=== PATIENT | female | born 2000 ===

== ENCOUNTER 2020-06-12 19:37 | Emergency (ER) | payer SELFPAY ==
[2020-06-12 19:45] VITALS: BP 129/84
--- NOTE | 2020-06-12 20:14 | Event Note ---
ED Screening Note Date of service: 06/12/20 Time: 20:13 ED Screening Note: 19-year-old -[place] female presents to the emergency room for nausea and vomiting that started this morning. Patient states that she started having cramps and she has been sitting here in the ER. Patient reports her last menstrual period was 05/04/2020. She has not checked a test at home. This initial assessment/diagnostic orders/clinical plan/treatment(s) is/are subject to change based on patients health status, clinical progression and re- assessment by fellow clinical providers in the ED. Further treatment and workup at subsequent clinical providers discretion. Patient/guardian urged not to elope from the ED as their condition may be serious if not clinically assessed and managed. Initial orders include:
[2020-06-12 21:07] LABS: Eosinophils # (Auto) 0.1 K/mm3 (0.0-0.4); Eosinophils % (Auto) 1.5 % (0.0-4.3); Hematocrit 38.9 % (30.3-42.9); Lymphocytes % (Auto) 30.1 % (13.4-35.0); Mean Corpuscular HGB Conc 33 % (30-34); Mean Corpuscular Volume 89 fl (79-97); Monocytes # (Auto) 0.5 K/mm3 (0.0-0.8); Monocytes % (Auto) 7.9 % (0.0-7.3); Platelet Count 206 K/mm3 (140-440); Red Blood Count 4.36 M/mm3 (3.65-5.03); Red Cell Distribution Width 13.4 % (13.2-15.2)
[2020-06-12 21:11] LABS: Alanine Aminotransferase 10 units/L (7-56); Albumin 4.3 g/dL (3.9-5); Blood Urea Nitrogen 7 mg/dL (7-17); Hemolysis Index 4
[2020-06-12 21:20] LABS: BUN/Creatinine Ratio 12
[2020-06-12 22:43] LABS: Bilirubin,Urine NEG (Negative); Blood,Urine NEG (Negative); Color,Urine Yellow (Yellow); Mucus,Urine 2+ /HPF; Urobilinogen,Urine < 2.0 mg/dL (<2.0)
--- NOTE | 2020-06-13 01:18 | Emergency Department Report ---
ED Female HPI - General Chief complaint: Nausea/Vomiting/Diarrhea Stated complaint: NAUSEA, STOMACH PAIN Time Seen by Provider: 06/13/20 00:59 Source: patient Mode of arrival: Ambulatory Limitations: No Limitations - History of Present Illness Initial comments: 19-year-old F [place] female resulting in ectopic about a year ago presents emerged department complaining of pelvic cramping associated with nausea and vomiting which has since progressed to pain while sitting here in the emergency department of unknown etiology. She reports no to her knowledge but states that her menstrual period is little bit late reports no trauma ports no dysuria no hematuria no fevers chills or sweats, no chest pain, palpitation, headache, dizziness. The vomiting has been cyclic in nature. MD Complaint: pelvic pain -: days(s) Location: suprapubic Radiation: suprapubic Severity: severe Quality: cramping, aching Consistency: constant Improves with: none Worsens with: none Are you Now?: No (But last menstrual period was in April) Associated Symptoms: denies other symptoms - Related Data Sexually active: Yes Previous Rx's Medication Instructions Recorded Last Taken Type Doxylamine Succinate/Vit B6 1 each PO Q8HR #30 tablet. 06/13/20 Unknown Rx [Dichues 10-10 mg Tablet] Allergies Allergy/AdvReac Type Severity Reaction Status Date / Time No Known Allergies Allergy Unverified 06/12/20 19:45 ED Review of Systems ROS: Stated complaint: NAUSEA, STOMACH PAIN Other details as noted in HPI Comment: All other systems reviewed and negative ED Past Medical Hx - Past Medical History Previous Medical History?: No - Social History Smoking Status: Never Smoker Substance Use Type: None - Medications Home Medications: Home Medications Medication Instructions Recorded Confirmed Last Taken Type Doxylamine Succinate/Vit B6 1 each PO Q8HR #30 tablet. 06/13/20 Unknown Rx [Madonna Boyle 10-10 mg Tablet] ED Physical Exam - General Limitations: No Limitations General appearance: alert, in no apparent distress - Head Head exam: Present: atraumatic, normocephalic - Eye Eye exam: Present: normal appearance, PERRL, EOMI. Absent: scleral icterus, conjunctival injection, periorbital tenderness Pupils: Present: normal accommodation - ENT ENT exam: Present: normal exam, normal orophraynx, mucous membranes moist, TM's normal bilaterally, normal external ear exam - Neck Neck exam: Present: normal inspection, full ROM - Respiratory Respiratory exam: Present: normal lung sounds bilaterally. Absent: respiratory distress - Cardiovascular Cardiovascular Exam: Present: regular rate, normal rhythm. Absent: systolic murmur, diastolic murmur, rubs, gallop - GI/Abdominal GI/Abdominal exam: Present: soft, tenderness, normal bowel sounds - Extremities Exam Extremities exam: Present: normal inspection - Back Exam Back exam: Present: normal inspection - Neurological Exam Neurological exam: Present: alert, oriented X3 - Psychiatric Psychiatric exam: Present: normal affect, normal mood - Skin Skin exam: Present: warm, dry, intact, normal color. Absent: rash ED Course Vital Signs 06/12/20 19:43 Temperature 98.0 F Pulse Rate 79 Respiratory 18 Rate Blood Pressure 129/84 O2 Sat by Pulse 98 Oximetry ED Medical Decision Making - Lab Data Result diagrams: 06/12/20 20:21 06/12/20 20:21 - Radiology Data Radiology results: report reviewed Patient Name: DIPESH VELASCO Gender: Female Date of : 2000 Referring Provider: SANTIAGO REZA Organization: [facility] Accession Number: [id number] Requested Date: June 13, 2020 01:03 Report Status: Final Requested Procedure: 1 Procedure Description: US OB <= 14 weeks fetus Modality: US Findings Reporting MD: Foster Interiano Dictation Time: June 13, 2020 02:26 [place] Miner: 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 A fundal intrauterine gestational sac is seen with yolk sac and pole noted. Estimated gestational age by crown-rump length is 6 weeks 0 days which corresponds reasonably well with the 5 weeks 5 days by clinical dating. However, cardiac activity is not verified and viability is not confirmed. No obvious implantational bleed is seen. Left ovary measures 3.3 cm in length and shows no abnormalities. Right ovary is not visualized. No free fluid is seen. IMPRESSION: Intrauterine without confirmation of viability. Follow-up is needed. 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 A fundal intrauterine gestational sac is seen with yolk sac and pole noted. Estimated gestational age by crown-rump length is 6 weeks 0 days which corresponds reasonably well with the 5 weeks 5 days by clinical dating. However, cardiac activity is not verified and viability is not confirmed. No obvious implantational bleed is seen. Left ovary measures 3.3 cm in length and shows no abnormalities. Right ovary is not visualized. No free fluid is seen. IMPRESSION: Intrauterine without confirmation of viability. Follow-up is needed. Signer Name: Foster Interiano MD Signed: 06/13/2020 2:26 AM Workstation Name: [id number] - Medical Decision Making Female presents emergency department complaining of nausea and vomiting without diarrhea. The patient is overall well-appearing and suspected to have hyperemesis gravidarum. Given the history of examination he does not appear to be an emergency cause for the symptoms such as small bowel obstruction, coronary syndrome, bowel ischemia, DKA, pancreatitis, appendicitis, acute abdomen no emergent problem. Patient was treated with Reglan, Benadryl, fluids as well as vitamin D6. After treatment patient is feeling much better tolerating p.o. fluids shows no signs of dehydration. Treated patient with Reglan Benadryl was slightly decreased her symptoms to the point she can hold conversation and sit up and ambulate. She requested more antiemetics discussed with Bella and his risk and she chose to go through with the medication. We discussed ultrasound findings as well as laboratory results. She is been encouraged to follow-up with an LICENSED OCCUPATIONAL THERAPIST for which she states she is able to do and also Tylenol [id number].. Prescription written for likely just incident reminded the importance of hydration and follow-up advised patient to return to emergency department should her symptoms worsen she did leave the emergency department for getting her actual discharge papers due to haste Critical care attestation.: If time is entered above; I have spent that time in minutes in the direct care of this critically ill patient, excluding procedure time. ED Disposition Clinical Impression: Hyperemesis gravidarum Disposition: DC- TO HOME OR SELFCARE Is pt being admited?: No Does the pt Need Aspirin: No Condition: Stable Instructions: Hyperemesis Gravidarum, Nausea and Vomiting, Adult, [id number], Morning Sickness Prescriptions: Doxylamine Succinate/Vit B6 [Madonna Boyle 10-10 mg Tablet] 1 each PO Q8HR #30 tablet. Referrals: PRIMARY CARE, [Primary Care Provider] - 3-5 Days [facility] [Provider Group] - 3-5 Days
[2020-06-13] MEDS ORDERED: PYRIDOXINE 50 MG TAB PO SCH (01:25)
[2020-06-13] MEDS ORDERED: METOCLOPRAMIDE 10 MG/2 ML INJ IV STA (01:25)
[2020-06-13] MEDS ORDERED: SODIUM CHLORIDE 0.9% 1000 ML 1,000 ML IV ONE (01:25)
[2020-06-13] MEDS ORDERED: ACETAMINOPEN W/CODEINE 120-12MG ORAL LIQD 5 ML PO STA (01:25)
[2020-06-13] MEDS ORDERED: diphenhydrAMINE 50 MG/ML VIAL IV STA (01:25)
--- NOTE | 2020-06-13 03:30 | Ultrasound Report ---
Early obstetrical ultrasound INDICATION: Early , vomiting, pelvic pain TECHNIQUE: Transabdominal COMPARISON: None FINDINGS: Uterus measures 7.8 cm in length. A fundal intrauterine gestational sac is seen with yolk s ac and pole noted. Estimated gestational age by crown-rump length is 6 weeks 0 days which corre sponds reasonably well with the 5 weeks 5 days by clinical dating. However, cardiac activity is not v erified and viability is not confirmed. No obvious implantational bleed is seen. Left ovary measures 3.3 cm in length and shows no abnormalities. Right ovary is not visualized. No fr ee fluid is seen. IMPRESSION: Intrauterine without confirmation of viability. Follow-up is needed. Signer Name: Foster Interiano MD Signed: 06/13/2020 3:26 AM Workstation Name: [id number]
[2020-06-13] MEDS ORDERED: ONDANSETRON 4 MG/2 ML INJ IV STA (03:44)
== END 2020-06-13 04:32 | disposition home or self-care (01) ==
LOC: ED 19:37
DX: O21.0 Mild hyperemesis gravidarum (principal); Z79.899 Other long term (current) drug therapy; Z3A.01 Less than 8 weeks gestation of pregnancy
CPT/HCPCS: 36415; 76801; 80053; 81001; 84702; 85025; 96361; 96374; 96375; 99284; J1200; J2405; J2765; J7030

== ENCOUNTER 2020-06-14 07:30 | Emergency (ER) | payer SELFPAY ==
[2020-06-14 07:40] VITALS: BP 107/76
[2020-06-14] MEDS ORDERED: diphenhydrAMINE 25 MG/10 ML ORAL LIQUID PO ONE (07:41)
[2020-06-14] MEDS ORDERED: METOCLOPRAMIDE 10 MG TAB PO ONE (07:41)
--- NOTE | 2020-06-14 07:43 | Event Note ---
ED Screening Note Date of service: 06/14/20 Time: 07:42 ED Screening Note: Patient presents with complaints of abdominal pain, nausea/vomiting, and blood in urine times yesterday 6 weeks States she has had an ultrasound that showed an IUP This initial assessment/diagnostic orders/clinical plan/treatment(s) is/are subject to change based on patients health status, clinical progression and re- assessment by fellow clinical providers in the ED. Further treatment and workup at subsequent clinical providers discretion. Patient/guardian urged not to elope from the ED as their condition may be serious if not clinically assessed and managed. Initial orders include: Labs Reglan and Benadryl Ultrasound
[2020-06-14] MEDS ORDERED: FAMOTIDINE 20 MG TAB PO ONE (07:44)
--- NOTE | 2020-06-14 08:36 | Ultrasound Report ---
ULTRASOUND OBSTETRIC INDICATION / CLINICAL INFORMATION: pain in early . Clinical Gestational Age (GA): 5 weeks 6.days TECHNIQUE: Transabdominal. COMPARISON: 06/13/2020 FINDINGS: GESTATIONAL SAC: Well-defined oval shape and intrauterine in location. YOLK SAC: No significant abnormality. EMBRYO/FETUS: No significant abnormality. - Panther Burn-Rump Length = 3.3 mm = 6 weeks. 0 days - Heart Rate, beats per minute (if present) = unable to obtain heart rate. ADNEXA: 2.2 cm left ovarian cyst. The right ovary is unremarkable. FREE FLUID: None. ADDITIONAL FINDINGS: Small subchorionic hemorrhage. IMPRESSION: 1. Single, intrauterine with estimated sonographic age of 6 weeks. 0 days. 2. heart rate unable to be obtained at this time, which may be secondary to early dating. Nadeem nued ultrasound follow-up is recommended. Signer Name: Osman Bahena MD Signed: 06/14/2020 8:32 AM Workstation Name: [id number]
[2020-06-14 08:52] LABS: Bilirubin,Urine NEG (Negative); Blood,Urine SM (Negative); Color,Urine Yellow (Yellow); Mucus,Urine 3+ /HPF; Urobilinogen,Urine < 2.0 mg/dL (<2.0)
[2020-06-14 09:11] LABS: Basophils % (Auto) 0.2 % (0.0-1.8); Eosinophils % (Auto) 0.1 % (0.0-4.3); Hemoglobin 12.1 gm/dl (10.1-14.3); Lymphocytes # (Auto) 1.4 K/mm3 (1.2-5.4); Lymphocytes % (Auto) 10.8 % (13.4-35.0); Mean Corpuscular HGB Conc 34 % (30-34); Mean Corpuscular Volume 88 fl (79-97); Monocytes # (Auto) 1.7 K/mm3 (0.0-0.8); Monocytes % (Auto) 12.6 % (0.0-7.3); Platelet Count 221 K/mm3 (140-440); Red Blood Count 4.09 M/mm3 (3.65-5.03); Red Cell Distribution Width 13.7 % (13.2-15.2)
[2020-06-14 09:27] LABS: Alanine Aminotransferase 27 units/L (7-56); Albumin 4.7 g/dL (3.9-5); Blood Urea Nitrogen 11 mg/dL (7-17); Calcium 9.5 mg/dL (8.4-10.2); Hemolysis Index 3
[2020-06-14 09:31] LABS: BUN/Creatinine Ratio 16
[2020-06-14] MEDS ORDERED: ACETAMINOPHEN W/CODEINE 300-30 MG TAB PO ONE (11:00)
[2020-06-14] MEDS ORDERED: POTASSIUM CHLORIDE ER 20 MEQ TAB PO ONE (11:00)
--- NOTE | 2020-06-14 11:07 | Emergency Department Report ---
ED HPI - General Chief complaint: Abdominal Pain Stated complaint: 6 WEEKS /CRAMPING/VOMITTING Time Seen by Provider: 06/14/20 07:40 Source: patient Mode of arrival: Ambulatory Limitations: No Limitations - Related Data Previous Rx's Medication Instructions Recorded Last Taken Type Doxylamine Succinate/Vit B6 1 each PO Q8HR #30 tablet. 06/13/20 Unknown Rx [Madonna Boyle 10-10 mg Tablet] Acetaminophen 500 - 1,000 mg PO QID PRN #30 06/14/20 Unknown Rx capsule Metoclopramide [Reglan] 10 mg PO TID PRN #30 tab 06/14/20 Unknown Rx Potassium Chloride 10 meq PO QDAY 5 Days #5 tablet.er 06/14/20 Unknown Rx diphenhydrAMINE [Benadryl CAP] 25 mg PO TID PRN #30 capsule 06/14/20 Unknown Rx Allergies Allergy/AdvReac Type Severity Reaction Status Date / Time No Known Allergies Allergy Unverified 06/12/20 19:45 ED Review of Systems ROS: Stated complaint: 6 WEEKS /CRAMPING/VOMITTING Other details as noted in HPI ED Past Medical Hx - Past Medical History Previous Medical History?: No - Surgical History Additional Surgical History: ectopic - Social History Smoking Status: Never Smoker - Medications Home Medications: Home Medications Medication Instructions Recorded Confirmed Last Taken Type Doxylamine Succinate/Vit B6 1 each PO Q8HR #30 tablet. 06/13/20 Unknown Rx [Madonna Boyle 10-10 mg Tablet] Acetaminophen 500 - 1,000 mg PO QID PRN #30 06/14/20 Unknown Rx capsule Metoclopramide [Reglan] 10 mg PO TID PRN #30 tab 06/14/20 Unknown Rx Potassium Chloride 10 meq PO QDAY 5 Days #5 tablet.er 06/14/20 Unknown Rx diphenhydrAMINE [Benadryl CAP] 25 mg PO TID PRN #30 capsule 06/14/20 Unknown Rx ED Physical Exam - General Limitations: No Limitations ED Course Vital Signs 06/14/20 07:36 Temperature 98.1 F Pulse Rate 83 Respiratory 18 Rate Blood Pressure 107/76 O2 Sat by Pulse 97 Oximetry ED Medical Decision Making - Lab Data Result diagrams: 06/14/20 08:19 06/14/20 08:19 Critical care attestation.: If time is entered above; I have spent that time in minutes in the direct care of this critically ill patient, excluding procedure time. ED Disposition Clinical Impression: Hyperemesis gravidarum Abdominal pain in Qualifiers: Trimester: first trimester Qualified Code(s): O26.891 - Other specified related conditions, first trimester; R10.9 - Unspecified abdominal pain Disposition: TO HOME OR SELFCARE Is pt being admited?: No Condition: Stable Instructions: Abdominal Pain (ED), Hyperemesis Gravidarum, Abdominal Pain During Prescriptions: Acetaminophen 500 - 1,000 mg PO QID PRN #30 capsule PRN Reason: pain diphenhydrAMINE [Benadryl CAP] 25 mg PO TID PRN #30 capsule PRN Reason: Nausea Potassium Chloride 10 meq PO QDAY 5 Days #5 tablet.er Metoclopramide [Reglan] 10 mg PO TID PRN #30 tab PRN Reason: Nausea Referrals: [facility] [Provider Group] - 3-5 Days
== END 2020-06-14 10:37 | disposition home or self-care (01) ==
LOC: ED 07:30
DX: O26.891 Other specified pregnancy related conditions, first trimester (principal); Z53.21 Procedure and treatment not carried out due to patient leaving prior to being seen by health care provider
CPT/HCPCS: 36415; 76801; 80053; 81001; 83690; 84702; 85025; 86850; 86900; 86901; Q0163